=== PATIENT | female | born 2000 | race American Indian/Alaskan Native ===

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

== ENCOUNTER 2022-07-14 06:48 | Emergency (ER) | payer SELFPAY ==
[2022-07-14 07:24] VITALS: BP 108/78
== END 2022-07-14 15:42 | disposition left against medical advice (07) ==
LOC: ED 06:48
DX: R30.0 Dysuria (principal); Z53.21 Procedure and treatment not carried out due to patient leaving prior to being seen by health care provider